=== PATIENT | female | born 1985 | race Caucasian/White ===

== ENCOUNTER → 2019-10-08 12:51 | Outpatient (BNVA) | payer BC, SELFPAY | PROVIDERS: PCP Family Medicine; Visit Provider Internal Medicine Rheumatology | DX: M79.7 Fibromyalgia (principal); M25.50 Pain in unspecified joint | CPT/HCPCS: 99203 ==

== ENCOUNTER → 2022-06-27 12:59 | Outpatient (BNVA) | payer BC, SELFPAY | PROVIDERS: PCP Family Medicine; Referring Provider Family Medicine; Visit Provider Psychiatry & Neurology Neurology | DX: R29.90 Unspecified symptoms and signs involving the nervous system (principal); M62.838 Other muscle spasm; M54.50 Low back pain, unspecified; R29.898 Other symptoms and signs involving the musculoskeletal system; R32 Unspecified urinary incontinence; R26.9 Unspecified abnormalities of gait and mobility; R25.1 Tremor, unspecified; R47.9 Unspecified speech disturbances; M79.603 Pain in arm, unspecified; R20.2 Paresthesia of skin; H53.9 Unspecified visual disturbance; H91.90 Unspecified hearing loss, unspecified ear; H93.12 Tinnitus, left ear | CPT/HCPCS: 36415; 80053; 82607; 82746; 83921; 84439; 84443; 84481; 85025; 85651; 86140; 86160; 86162; 86235; 86255; 86376 ==